=== PATIENT | male | born 1980 ===

== ENCOUNTER 2017-12-06 15:43 | Emergency (ER) | payer BC, OTHER ==
[2017-12-06 16:18] VITALS: RESP 18; TEMP 98.1; BMI 43.0
--- NOTE | 2017-12-06 16:43 | ED PDOC ---
Arrival/HPI - General Chief Complaint: Trauma Time Seen by Provider: 12/06/17 16:12 Historian: Patient - History of Present Illness Narrative History of Present Illness (Text): 12/06/17 16:39 This 37 yo male presents to this ED c/o "my tail bone hurts" x [employer]. Patient stated while walking downstairs at work, he slipped and fell down on his buttock. Patient denies other somatic complains. Time/Duration: Prior to Arrival Quality: Aching Context: Work Past Medical History - Provider Review Nursing Documentation Reviewed: Yes - Tetanus Immunization Tetanus Immunization: Unknown - Cardiac Hx Cardiac Disorders: No - Pulmonary Hx Asthma: Yes - Neurological Hx Neurological Disorder: No - HEENT Hx HEENT Disorder: No - Renal Hx Renal Disorder: No - Endocrine/Metabolic Hx Endocrine Disorders: No - Hematological/Oncological Hx Blood Disorders: No - Integumentary Hx Dermatological Disorder: No - Musculoskeletal/Rheumatological Hx Musculoskeletal Disorders: No - Gastrointestinal Hx Gastrointestinal Disorders: No - Genitourinary/Gynecological Hx Genitourinary Disorders: No - Psychiatric Hx Depression: No Hx Emotional Abuse: No Hx Physical Abuse: No Hx Substance Use: No - Past Surgical History Past Surgical History: No Previous - Suicidal Assessment Feels Threatened In Home Enviroment: No Family/Social History - Physician Review Nursing Documentation Reviewed: Yes Family/Social History: Other (noncontributory) Smoking Status: Never Smoked Hx Alcohol Use: No Hx Substance Use: No Hx Substance Use Treatment: No Allergies/Home Meds Allergies/Adverse Reactions: Allergies No Known Allergies Allergy (Verified 12/06/17 16:12) Review of Systems - Review of Systems Constitutional: Normal. absent: Fatigue, Weight Change, Fevers Eyes: Normal ENT: Normal Respiratory: Normal Cardiovascular: Normal Gastrointestinal: Normal Genitourinary Male: Normal Musculoskeletal: Other (tail bone pain) Skin: Normal Neurological: Normal Endocrine: Normal Hemo/Lymphatic: Normal Psychiatric: Normal Physical Exam Vital Signs Temp Pulse Resp BP Pulse Ox 12/06/17 16:13 98.1 F 91 H 18 151/110 H 96 Temperature: Afebrile Blood Pressure: Normal Pulse: Regular Respiratory Rate: Normal Appearance: Positive for: Well-Appearing, Non-Toxic, Comfortable Pain Distress: None Mental Status: Positive for: Alert and Oriented X 3 - Systems Exam Head: Present: Atraumatic, Normocephalic Pupils: Present: PERRL Extroacular Muscles: Present: EOMI Conjunctiva: Present: Normal Mouth: Present: Moist Mucous Membranes Neck: Present: Normal Range of Motion Respiratory/Chest: Present: Clear to Auscultation, Good Air Exchange. No: Respiratory Distress, Accessory Muscle Use Cardiovascular: Present: Regular Rate and Rhythm, Normal S1, S2. No: Murmurs Abdomen: Present: Normal Bowel Sounds. No: Tenderness, Distention, Peritoneal Signs Back: Present: Normal Inspection, Other (Mild tenderness near sacrum/coccyx area. No ecchymosis or swelling). No: CVA Tenderness, Midline Tenderness, Paraspinal Tenderness, Pain with Leg Raise Upper Extremity: Present: Normal Inspection, Normal ROM. No: Cyanosis, Edema Lower Extremity: Present: Normal Inspection, Normal ROM. No: Edema Neurological: Present: GCS=15, CN II-XII Intact, Speech Normal, Motor Func Grossly Intact, Normal Sensory Function, Normal Cerebellar Funct, Gait Normal, Memory Normal Skin: Present: Warm, Dry, Normal Color. No: Rashes Psychiatric: Present: Alert, Oriented x 3, Normal Insight, Normal Concentration Medical Decision Making ED Course and Treatment: 12/06/17 18:47 Patient feels better. Patient wishes to be discharge home. Re-evaluation Time: 18:48 Reassessment Condition: Re-examined, Improved - RAD Interpretation Narrative RAD Interpretations (Text): 12/06/17 18:48 LS x-rays: No Fx. Sacrum/Coccyx: No Fx Radiology Orders: 12/06/17 16:38 LS SPINE WITH OBL > 18 YRS OLD [RAD] Stat SACRUM &/or COCCYX (MIN 2VW) [RAD] Stat - Medication Orders Current Medication Orders: Discontinued Medications Ibuprofen (Motrin Tab) 600 mg PO STAT STA Stop: 12/06/17 16:40 Disposition/Present on Arrival - Present on Arrival Any Indicators Present on Arrival: No History of DVT/PE: No History of Uncontrolled Diabetes: No Urinary Catheter: No History of Decub. Ulcer: No History Surgical Site Infection Following: None - Disposition Have Diagnosis and Disposition been Completed?: Yes Diagnosis: Back pain Disposition: HOME/ ROUTINE Disposition Time: 18:49 Patient Plan: Discharge Patient Problems: Current Active Problems Problem Status Onset Back pain Acute Condition: GOOD Discharge Instructions (ExitCare): Low Back Pain in Adults Additional Instructions: Call private doctor for follow up visit in 1-2 days. Take medication as instructed. Apply cold and warmth compress as needed. Return to emergency if symptoms. Make sure to contact center analyst Comp office for further medical arrangement if pain persist. Prescriptions: Ibuprofen [Motrin] 600 mg PO Q8 PRN #20 tab PRN Reason: Pain, Severe (8-10) Referrals: PCP,NO [Primary Care Provider] - Follow up with primary Forms: [facility] (Persian), WORK NOTE
[2017-12-06 19:02] VITALS: BP 126/99; PULSE 92; O2SAT 97
--- NOTE | 2017-12-07 08:41 | RAD ---
PROCEDURE: Radiographs of the Sacrum and Coccyx HISTORY: pain s/p fall COMPARISON: None available. TECHNIQUE: Frontal and lateral views of the sacrum and coccyx FINDINGS: BONES: Sacrum and coccyx unremarkable. No fracture or focal lesion. SACROILIAC JOINTS: Unremarkable. OTHER FINDINGS: None. IMPRESSION: Unremarkable radiographs of the sacrum and coccyx. Concordant results with the preliminary interpretation rendered by the emergency department physician procedure.
--- NOTE | 2017-12-07 08:41 | RAD ---
PROCEDURE: Radiographs of the Lumbar Spine. HISTORY: pain s/p fall COMPARISON: No prior. FINDINGS: BONES: Normal alignment. No listhesis. No fracture. DISC SPACES: Unremarkable. OTHER FINDINGS: None. IMPRESSION: Unremarkable radiographs of the lumbar spine. Concordant results with the preliminary interpretation rendered by the emergency department physician procedure.
== END 2017-12-06 18:58 | disposition home or self-care (01) ==
LOC: ED 15:43
DX: M54.5 Low back pain (principal)

== ENCOUNTER 2017-12-10 09:36 | Emergency (ER) | payer OTHER ==
--- NOTE | 2017-12-10 10:04 | ED PDOC ---
Arrival/HPI - General Time Seen by Provider: 12/10/17 09:37 Historian: Patient - History of Present Illness Narrative History of Present Illness (Text): 12/10/17 10:01 37yo male with no PMhx who present with tail bone/left sided lower back pain s/ p trauma. Patient states he fell dlown flight of stairs on 12/06/17 and was seen here s/p. coccyx and LS xray was both negative for fracture. States he came back to Ed because he was offered injection for his pain and he declined it, but he is still having pain. He took Aleve this morning without relieve. Pain is worse with sitting. He denies focal weakness, recent trauma, urinary/fecal incontinence, saddle anesthesia, any other complaint. Past Medical History - Provider Review Nursing Documentation Reviewed: Yes - Tetanus Immunization Tetanus Immunization: Unknown - Cardiac Hx Cardiac Disorders: No - Pulmonary Hx Asthma: Yes - Neurological Hx Neurological Disorder: No - HEENT Hx HEENT Disorder: No - Renal Hx Renal Disorder: No - Endocrine/Metabolic Hx Endocrine Disorders: No - Hematological/Oncological Hx Blood Disorders: No - Integumentary Hx Dermatological Disorder: No - Musculoskeletal/Rheumatological Hx Musculoskeletal Disorders: No - Gastrointestinal Hx Gastrointestinal Disorders: No - Genitourinary/Gynecological Hx Genitourinary Disorders: No - Psychiatric Hx Depression: No Hx Emotional Abuse: No Hx Physical Abuse: No Hx Substance Use: No - Past Surgical History Past Surgical History: No Previous - Suicidal Assessment Feels Threatened In Home Enviroment: No Family/Social History - Physician Review Nursing Documentation Reviewed: Yes Family/Social History: Unknown Family HX Smoking Status: Never Smoked Hx Alcohol Use: No Hx Substance Use: No Hx Substance Use Treatment: No Allergies/Home Meds Allergies/Adverse Reactions: Allergies No Known Allergies Allergy (Verified 12/06/17 16:12) Review of Systems - Physician Review All systems were reviewed & negative as marked: Yes - Review of Systems Constitutional: Normal Eyes: Normal ENT: Normal Respiratory: Normal Cardiovascular: Normal Gastrointestinal: Normal Genitourinary Male: Normal Musculoskeletal: Back Pain Skin: Normal Neurological: Normal Endocrine: Normal Hemo/Lymphatic: Normal Psychiatric: Normal Physical Exam Vital Signs Reviewed: Yes Vital Signs Temp Pulse Resp BP Pulse Ox 12/10/17 10:05 97.7 F 111 H 18 158/90 H 97 Temperature: Afebrile Blood Pressure: Normal Pulse: Regular Respiratory Rate: Normal Appearance: Positive for: Well-Appearing, Non-Toxic, Comfortable Pain Distress: None Mental Status: Positive for: Alert and Oriented X 3 - Systems Exam Head: Present: Atraumatic, Normocephalic Pupils: Present: PERRL Extroacular Muscles: Present: EOMI Conjunctiva: Present: Normal Mouth: Present: Moist Mucous Membranes Neck: Present: Normal Range of Motion Respiratory/Chest: Present: Clear to Auscultation, Good Air Exchange. No: Respiratory Distress, Accessory Muscle Use Cardiovascular: Present: Regular Rate and Rhythm, Normal S1, S2. No: Murmurs Abdomen: Present: Normal Bowel Sounds. No: Tenderness, Distention, Peritoneal Signs Back: Present: Paraspinal Tenderness (Left paralumbar and sacral/coccyx tenderness), Pain with Leg Raise (LEft leg). No: Midline Tenderness Upper Extremity: Present: Normal Inspection. No: Cyanosis, Edema Lower Extremity: Present: Normal Inspection. No: Edema Neurological: Present: GCS=15, CN II-XII Intact, Speech Normal Skin: Present: Warm, Dry, Normal Color. No: Rashes Psychiatric: Present: Alert, Oriented x 3, Normal Insight, Normal Concentration Medical Decision Making ED Course and Treatment: 12/10/17 19:18 PT in ED for stated history. Pain is reproducible. Pt's xray from 11/26/17 was reviewed and it was negative. He was DC home and referred to his PMD. - Medication Orders Current Medication Orders: Discontinued Medications Cyclobenzaprine HCl (Flexeril) 10 mg PO STAT STA Stop: 12/10/17 10:02 Last Admin: 12/10/17 10:21 Dose: 10 mg Ketorolac Tromethamine (Toradol) 60 mg IM STAT STA Stop: 12/10/17 10:02 Last Admin: 12/10/17 10:21 Dose: 60 mg MAR Pain Assessment Document 12/10/17 10:21 DARÍO (Rec: 12/10/17 10:22 [email or web address] [id number]) Pain Reassessment Is this a pain reassessment? No Sleep Is patient sleeping during reassessment? No Presence of Pain Presence of Pain Yes Pain Scale Used Pain Scale Used Numeric Description Description Intermittent Intensity of Pain at present 8 IM Administration Charges Document 12/10/17 10:21 DARÍO (Rec: 12/10/17 10:22 [email or web address] [id number]) Injection Site MAR Injection Site Left Gluteus Medius Charges for Administration # of IM Administrations 1 Disposition/Present on Arrival - Present on Arrival Any Indicators Present on Arrival: No History of DVT/PE: No History of Uncontrolled Diabetes: No Urinary Catheter: No History Surgical Site Infection Following: None - Disposition Have Diagnosis and Disposition been Completed?: Yes Diagnosis: Back pain, Coccyx pain Disposition: HOME/ ROUTINE Disposition Time: 10:10 Patient Plan: Discharge Condition: STABLE Discharge Instructions (ExitCare): Coccyx Injury Additional Instructions: Follow up with your Doctor/orthopedist Return to ED for any new symptoms Prescriptions: Baclofen [Lioresal] 20 mg PO TID #12 tab traMADol [Ultram] 50 mg PO TID #10 tab Referrals: Anjum Aguilar MD [Staff Provider] - Follow up with primary Forms: WORK NOTE
[2017-12-10 10:06] VITALS: BP 158/90; PULSE 111; RESP 18; TEMP 97.7; O2SAT 97
[2017-12-10 10:13] VITALS: BMI 43.5
== END 2017-12-10 11:06 | disposition home or self-care (01) ==
LOC: ED 09:36
DX: M53.3 Sacrococcygeal disorders, not elsewhere classified (principal); M54.5 Low back pain
CPT/HCPCS: 96372; 99283; J1885